=== PATIENT | female | born 1975 | race Caucasian/White ===

== ENCOUNTER 2018-04-11 10:44 | Emergency (ER) | payer OTHER ==
[~2018-04-11] VITALS: Ht 157.5 cm; Wt 103.0 kg
[2018-04-11] MEDS ORDERED: XANAFLEX (11:17)
[2018-04-11] MEDS ORDERED: METFORMIN HCL500 M1 PO (11:17)
[2018-04-11] MEDS ORDERED: TRAZODONE HCL50 MG PO (11:17)
[2018-04-11] MEDS ORDERED: FARXIGA (11:17)
[2018-04-11] MEDS ORDERED: WELLBUTRIN SR150 MG (11:17)
[2018-04-11] MEDS ORDERED: TRULICITY (11:17)
[2018-04-11] MEDS ORDERED: CELEXA10 MG (11:17)
[2018-04-11] MEDS ORDERED: ATENOLOL50 MG PO (11:17)
[2018-04-11] MEDS ORDERED: ATORVASTATIN CA10 MG PO (11:17)
[2018-04-11] MEDS ORDERED: GABAPENTIN300 MG PO (11:17)
[2018-04-11] MEDS ORDERED: ZANAFLEX4 M1 (11:23)
[2018-04-11] MEDS ORDERED: KETOROLAC TROMETHAMINE 60 MG/2 ML VIAL IM ONE (11:30)
== END 2018-04-11 11:48 | disposition home or self-care (01) ==
LOC: FSED 10:44
DX: S30.0XXA Contusion of lower back and pelvis, initial encounter (principal); W01.0XXA Fall on same level from slipping, tripping and stumbling without subsequent striking against object, initial encounter; Y92.002 Bathroom of unspecified non-institutional (private) residence as the place of occurrence of the external cause; F32.9 Major depressive disorder, single episode, unspecified; F41.9 Anxiety disorder, unspecified
CPT/HCPCS: 72220; 99283; J1885

== ENCOUNTER 2018-07-30 19:53 | Emergency (ER) | payer OTHER ==
[~2018-07-30] VITALS: Ht 157.5 cm; Wt 103.0 kg
[~2018-07-30 19:53] MED LIST: ATENOLOL50 MG PO; ATORVASTATIN CA10 MG PO; CELEXA10 MG; FARXIGA; GABAPENTIN300 MG PO; METFORMIN HCL500 M1 PO; TRAZODONE HCL50 MG PO; TRULICITY; WELLBUTRIN SR150 MG; XANAFLEX; ZANAFLEX4 M1
--- OUTSIDE RECORDS SUMMARY | 2018-07-30 19:56 | XMS REPORT ---
Author Author [facility] Address Unknown Phone Unavailable Care Team Providers Care Direct Mail Coordinator Name Role Phone GABRIELA BURNETT Unavailable Unavailable Problems This patient has no known problems. Allergies, Adverse Reactions, Alerts This patient has no known allergies or adverse reactions. Medications This patient has no known medications. Results Test Description Test Time Test Comments Text Results Atomic Results Result Comments RAD, HAND, 3 VIEWS, LEFT 2018-06-26 20:02:00 Reason for exam:->ANIMAL BITEPATIENT REPORTED DOG BITE TO LEFT HAND TUESDAY-Is the patient ?->NoShould this be performed at the bedside?->No FINAL REPORT CLINICAL HISTORY: ANIMAL BITE TECHNIQUE: 3 views of the left hand COMPARISON: None IMPRESSION: Diffuse soft tissue over the hand particularly the dorsal aspect of the metacarpals. No radiopaque foreign body. The bones of the hand are intact without evidence of fracture or dislocation. Signed: Wanda Godoy Verified Date/Time: 06/26/2018 20:02:32 Reading Location: [address] Reading Room , CHEST, 1 VIEW, NON DEPT 2018-06-14 19:00:00 Reason for exam:->PALPITATIONSReason for exam:->SHORTNESS OF BREATHIs the patient ?->Unknown FINAL REPORT Chest, 1 view Clinical history: PALPITATIONSSHORTNESS OF BREATH Comparison: 06/09/2015 Discussion: There is no pneumothorax, pulmonary edema or pleural effusion. There is no focal consolidation. There is mild bibasilar atelectasis. There is asymmetric elevation of the right hemidiaphragm as before. The cardiac silhouette appears within normal limits. No acute osseous abnormality. IMPRESSION: No acute cardiopulmonary abnormality Signed: Kelsy, Luke MDReport Verified Date/Time: 06/14/2018 19:00:38 Reading Location: [facility] B1 C013X Ortho Consult Reading Room /FREE T4 IF INDICATED 2018-06-14 18:55:00 THYROID STIMULATING HORMONE (BEAKER) (test gvov=244) 1.42 uIU/mL 0.35-4.94 TROPONIN [id number] 18:41:00* Test Item Value Reference Range Comments TROPONIN I (BEAKER) (test sujj=998) < ng/mL 0.00-0.03 Troponin I (TnI) levels must be interpreted in the context of the presenting sym ptoms and the clinical findings. Elevated TnI levels indicate myocardial damage, but are not specific for ischemic heart disease. Elevated TnI levels are seen in patients with other cardiac conditions (including myocarditis and congestive h eart failure), and slight TnI elevations occur in patients with other conditions , including sepsis, renal failure, acidosis, acute neurological disease, and per sistent tachyarrhythmia.[id number] 18:32:00* Test Item Value Reference Range Comments MAGNESIUM (BEAKER) (test mkak=199) 1.7 mg/dL 1.6-2.6 BASIC METABOLIC [id number] 18:32:00* Test Item Value Reference Range Comments SODIUM (BEAKER) (test adfj=820) 136 meq/L 136-145 POTASSIUM (BEAKER) (test rigc=742) 3.9 meq/L 3.5-5.1 CHLORIDE (BEAKER) (test ceny=251) 102 meq/L 98-107 CO2 (BEAKER) (test tbey=029) 24 meq/L 22-29 BLOOD UREA NITROGEN (BEAKER) (test jplz=037) 15 mg/dL 7-21 CREATININE (BEAKER) (test xhlb=678) 0.75 mg/dL 0.57-1.25 GLUCOSE RANDOM (BEAKER) (test fnjp=893) 393 mg/dL 70-105 CALCIUM (BEAKER) (test bmen=240) 9.0 mg/dL 8.4-10.2 EGFR (BEAKER) (test foty=2643) 84 mL/min/1.73 sq m ESTIMATED GFR IS NOT ACCURATE CREATININE CLEARANCE IN PREDICTING GLOMERULAR FILTRATION RATE. ESTIMATED GFR IS NOT APPLICABLE FOR DIALYSIS PATIENTS. CBC W/PLT COUNT & AUTO [id number] 18:18:00* Test Item Value Reference Range Comments WHITE BLOOD CELL COUNT (BEAKER) (test ujgb=042) 11.0 K/ L 3.5-10.5 RED BLOOD CELL COUNT (BEAKER) (test whvh=027) 4.88 M/ L 3.93-5.22 HEMOGLOBIN (BEAKER) (test mzzv=775) 12.0 GM/DL 11.2-15.7 HEMATOCRIT (BEAKER) (test alpc=436) 38.7 % 34.1-44.9 MEAN CORPUSCULAR VOLUME (BEAKER) (test dknt=548) 79.3 fL 79.4-94.8 MEAN CORPUSCULAR HEMOGLOBIN (BEAKER) (test hzny=260) 24.6 pg 25.6-32.2 MEAN CORPUSCULAR HEMOGLOBIN CONC (BEAKER) (test ajai=304) 31.0 GM/DL 32.2-35.5 RED CELL DISTRIBUTION WIDTH (BEAKER) (test okmd=378) 17.2 % 11.7-14.4 PLATELET COUNT (BEAKER) (test uswt=817) 282 K/CU MM 150-450 MEAN PLATELET VOLUME (BEAKER) (test ugro=081) 11.4 fL 9.4-12.3 NUCLEATED RED BLOOD CELLS (BEAKER) (test rrxe=894) 0 /100 WBC 0-0 NEUTROPHILS RELATIVE PERCENT (BEAKER) (test zpax=958) 66 % LYMPHOCYTES RELATIVE PERCENT (BEAKER) (test jzzu=340) 25 % MONOCYTES RELATIVE PERCENT (BEAKER) (test eume=571) 7 % EOSINOPHILS RELATIVE PERCENT (BEAKER) (test ctts=561) 1 % BASOPHILS RELATIVE PERCENT (BEAKER) (test fpwl=287) 0 % NEUTROPHILS ABSOLUTE COUNT (BEAKER) (test ptzr=927) 7.21 K/ L 1.56-6.13 LYMPHOCYTES ABSOLUTE COUNT (BEAKER) (test bxey=708) 2.74 K/ L 1.18-3.74 MONOCYTES ABSOLUTE COUNT (BEAKER) (test wqzh=876) 0.74 K/ L 0.24-0.36 EOSINOPHILS ABSOLUTE COUNT (BEAKER) (test ssen=092) 0.15 K/ L 0.04-0.36 BASOPHILS ABSOLUTE COUNT (BEAKER) (test bpku=205) 0.04 K/ L 0.01-0.08 IMMATURE GRANULOCYTES-RELATIVE PERCENT (BEAKER) (test ugqk=9650) 1 % 0-1
--- OUTSIDE RECORDS SUMMARY | 2018-07-30 19:56 | XMS REPORT | Clinical Summary ---
Author Author [employer] [facility]The [facility] Organization [facility] Address Unknown Phone Unavailable Care Team Providers Care Securities Attorney Name Role Phone Rusty Paula PCP Unavailable Allergies Comments Active Allergy Reactions Severity Noted Date Penicillins Anaphylaxis, High 06/09/2015 Hives Medications End Date Status Medication Sig Dispensed Refills Start Date Active LISINOPRIL ORAL Take by 0 mouth. Active ATENOLOL ORAL Take 50 mg by 0 mouth . Active SITAGLIPTIN Take by 0 PHOS/METFORMIN HCL mouth. (JANUMET ORAL) Active PRAVASTATIN SODIUM Take by 0 (PRAVASTATIN ORAL) mouth. Active insulin glargine (LANTUS) Inject 0 100 unit/mL injection subcutaneousl y nightly Use as directed . Active CITALOPRAM HYDROBROMIDE Take 40 mg by 0 (CELEXA ORAL) mouth . Active INSULIN LISPRO (HUMALOG Inject 0 SUBQ) subcutaneousl y. Active atorvastatin (LIPITOR) 20 Take 20 mg by 0 MG tablet mouth daily. Active metFORMIN (GLUCOPHAGE) Take 1,000 mg 0 1000 MG tablet by mouth 2 (two) times daily with breakfast and dinner. Active dulaglutide (TRULICITY Inject 0 SUBQ) subcutaneousl y once a week. Active sulfamethoxazole-trimetho Take 1 tablet 10 tablet 0 prim (BACTRIM DS) 800-160 (160 mg of 8 mg per tablet trimethoprim total) by mouth 2 (two) times daily. 07/01/2018 clindamycin (CLEOCIN) 300 Take 1 20 capsule 0 MG capsule capsule (300 8 mg total) by mouth 4 (four) times daily for 5 days. 07/01/2018 traMADol (ULTRAM) 50 mg Take 1 tablet 12 tablet 0 tablet (50 mg total) 8 by mouth every 8 (eight) hours as needed for Pain for up to 5 days. Max Daily Amount: 150 mg Active Problems Not on file Encounters Care Team Description Date Type Specialty Lasha Craven MD Dog bite of hand, left, initial encounter (Primary Dx); Cellulitis of left hand 06/26/2018 Emergency Emergency Medicine Kassie Silveira MD Palpitations (Primary Dx); Chest pain, unspecified type; PVC (premature ventricular contraction); Hyperglycemia; Obesity without serious comorbidity, unspecified classification, unspecified obesity type 06/14/2018 Emergency Emergency Medicine 06/14/2018 Orders Only General Internal Medicine after 07/29/2017 Immunizations Name Dates Previously Given Next Due Tdap 02/29/2016 Social History Date Tobacco Use Types Packs/Day Years Used Never Smoker Smokeless Tobacco: Never Used Alcohol Use Drinks/Week oz/Week Comments Yes social Sex Assigned at Date Recorded Not on file Industry Job Start Date Occupation Not on file Not on file Not on file Travel End Travel History Travel Start No recent travel history available. Last Filed Vital Signs Time Taken Vital Sign Reading 06/26/2018 6:21 PM CDT Blood Pressure 144/90 06/26/2018 6:21 PM CDT Pulse 62 06/26/2018 6:21 PM CDT Temperature 36.6 C (97.8 F) 06/26/2018 6:21 PM CDT Respiratory Rate 20 06/26/2018 6:21 PM CDT Oxygen Saturation 99% - Inhaled Oxygen - Concentration 06/26/2018 6:21 PM CDT Weight 103 kg (227 lb) 06/26/2018 6:21 PM CDT Height 157.5 cm (5' 2") 06/26/2018 6:21 PM CDT Body Mass Index 41.52 Plan of Treatment Not on file Procedures Comments Procedure Name Priority Date/Time Associated Diagnosis XR HAND LEFT 3 VIEW STAT 06/26/2018 6:48 PM CDT ED ECG INTERPRETATION Routine 06/14/2018 9:14 PM CDT XR CHEST 1 VIEW STAT 06/14/2018 PORTABLE/BEDSIDE 6:15 PM CDT CBC W/PLT COUNT & AUTO STAT 06/14/2018 DIFFERENTIAL 5:58 PM CDT TSH/FREE T4 IF INDICATED STAT 06/14/2018 5:58 PM CDT CBC W/PLT COUNT & AUTO STAT 06/14/2018 DIFFERENTIAL 5:58 PM CDT TROPONIN I STAT 06/14/2018 5:58 PM CDT MAGNESIUM STAT 06/14/2018 5:58 PM CDT BASIC METABOLIC PANEL (7) STAT 06/14/2018 5:58 PM CDT ECG 12-LEAD Routine 06/14/2018 5:25 PM CDT Procedure Note - Interface, External Ris In - 06/14/2018 6:14 PM CDT Ventricula r Rate 77 BPM Atrial Rate 77 BPM P-R Interval 152 ms QRS Duration 74 ms Q-T Interval 368 ms QTC Calculatio n(Bazett) 416 ms P [place] 29 degrees R [place] -20 degrees T [place] 11 degrees Sinus rhythm with occasional Premature ventricula r complexes Cannot rule out Anterior infarct , age undetermin ed Abnormal ECG When compared with ECG of 14-MAY-201 5 04:16, Premature ventricula r complexes are now Present ECG 12-LEAD STAT 06/14/2018 5:25 PM CDT after 07/29/2017 Results * XR hand 3 views left (06/26/2018 6:48 PM CDT) Narrative Performed At FINAL REPORT RIS CLINICAL HISTORY: ANIMAL BITE TECHNIQUE: 3 views of the left hand COMPARISON: None IMPRESSION: Diffuse soft tissue over the hand particularly the dorsal aspect of the metacarpals. No radiopaque foreign body. The bones of the hand are intact without evidence of fracture or dislocation. Signed: Wanda Godoy MD Report Verified Date/Time:06/26/2018 20:02:32 Reading Location: [address] Reading Room Procedure Note Interface, External Ris In - 06/26/2018 8:04 PM CDT FINAL REPORT CLINICAL HISTORY: ANIMAL BITE TECHNIQUE: 3 views of the left hand COMPARISON: None IMPRESSION: Diffuse soft tissue over the hand particularly the dorsal aspect of the metacarpals. No radiopaque foreign body. The bones of the hand are intact without evidence of fracture or dislocation. Signed: Wanda Godoy MD Report Verified Date/Time: 06/26/2018 20:02:32 Reading Location: [address] Reading Room Performing Organization Address City/State/Zipcode Phone Number [facility] * ED ECG Interpretation (06/14/2018 9:14 PM CDT) Narrative Performed At Kassie Silveira MD 06/14/20189:14 PM ECG/EKG Interpretation Date/Time: 06/14/2018 5:25 PM Performed by: KASSIE SILVEIRA Authorized by: KASSIE SILVEIRA The ECG was interpreted by ED physician. This ECG was not compared with previous ECG(s).The ECG is interpreted as sinus rhythm. Ectopy noted: PVCs. Rate is normal rate. Heart rate is 77 BPM. Conduction: conduction normal. ST segments normal. T waves normal. Clinical Impression: abnormal ECGECG reviewed and does not meet STEMI criteria. Patient tolerance: Patient tolerated the procedure well with no immediate complications * XR chest 1 view portable / bedside (06/14/2018 6:15 PM CDT) Narrative Performed At FINAL REPORT [facility] Chest, 1 view Clinical history: PALPITATIONS SHORTNESS OF BREATH Comparison: 06/09/2015 Discussion: There is no pneumothorax, pulmonary edema or pleural effusion. There is no focal consolidation. There is mild bibasilar atelectasis. There is asymmetric elevation of the right hemidiaphragm as before. The cardiac silhouette appears within normal limits. No acute osseous abnormality. IMPRESSION: No acute cardiopulmonary abnormality Signed: Alesia Mackey MD Report Verified Date/Time:06/14/2018 19:00:38 Reading Location: [facility] B1 C013X Ortho Consult Reading Room Procedure Note Interface, External Ris In - 06/14/2018 7:02 PM CDT FINAL REPORT Chest, 1 view Clinical history: PALPITATIONS SHORTNESS OF BREATH Comparison: 06/09/2015 Discussion: There is no pneumothorax, pulmonary edema or pleural effusion. There is no focal consolidation. There is mild bibasilar atelectasis. There is asymmetric elevation of the right hemidiaphragm as before. The cardiac silhouette appears within normal limits. No acute osseous abnormality. IMPRESSION: No acute cardiopulmonary abnormality Signed: Alesia Mackey MD Report Verified Date/Time: 06/14/2018 19:00:38 Reading Location: [facility] C013X Ortho Consult Reading Room Performing Organization Address City/State/Zipcode Phone Number [facility] * TSH/Free T4 If Indicated (06/14/2018 5:58 PM CDT) TSH 1.42 0.35 - 4.94 uIU/mL [facility] Specimen Blood - Arm, Left Performing Organization Address City/[facility]/[place] [address] [facility] * CBC with platelet count + automated diff (06/14/2018 5:58 PM CDT) WBC 11.0 (H) 3.5 - 10.5 K/L [facility] RBC 4.88 3.93 - 5.22 M/L [facility] Hemoglobin 12.0 11.2 - 15.7 GM/DL [facility] Hematocrit 38.7 34.1 - 44.9 % [facility] MCV 79.3 (L) 79.4 - 94.8 fL [facility] MCH 24.6 (L) 25.6 - 32.2 pg [facility] MCHC 31.0 (L) 32.2 - 35.5 GM/DL [facility] RDW 17.2 (H) 11.7 - 14.4 % [facility] Platelets 282 150 - 450 K/CU MM [facility] MPV 11.4 9.4 - 12.3 fL [facility] nRBC 0 0 - 0 /100 WBC [facility] % Neutros 66 % [facility] % Lymphs 25 % [facility] % Monos 7 % [facility] % Eos 1 % [facility] % Baso 0 % [facility] # Neutros 7.21 (H) 1.56 - 6.13 K/L [facility] # Lymphs 2.74 1.18 - 3.74 K/L [facility] # Monos 0.74 (H) 0.24 - 0.36 K/L [facility] # Eos 0.15 0.04 - 0.36 K/L [facility] # Baso 0.04 0.01 - 0.08 K/L [facility] Immature 1 0 - 1 % [facility] Granulocytes-Relative [facility] Specimen Blood - Arm, Left Performing Organization Address City/State/Zipcode Phone Number [facility] [address] [place] [address] MED[facility]ENTER * Troponin I (06/14/2018 5:58 PM CDT) Troponin I <0.01 0.00 - 0.03 ng/mL [facility] Specimen Blood - Arm, Left Narrative Performed At Troponin I (TnI) levels must be interpreted in the context of the presenting [facility] symptoms and the clinical findings. Elevated TnI levels indicate myocardial [facility] damage, but are not specific for ischemic heart disease. Elevated TnI levels are seen in patients with other cardiac conditions (including myocarditis and congestive heart failure), and slight TnI elevations occur in patients with other conditions, including sepsis, renal failure, acidosis, acute neurological disease, and persistent tachyarrhythmia. Performing Organization Address City/[facility] Phone Number [facility] [address] [place] [address] [facility] * Magnesium (06/14/2018 5:58 PM CDT) Magnesium 1.7 1.6 - 2.6 mg/dL [facility] Specimen Blood - Arm, Left Performing Organization Address [facility] Phone Number [facility] [address] [place] [address] [facility] * Basic Metabolic Panel (06/14/2018 5:58 PM CDT) Sodium 136 136 - 145 meq/L [facility] Potassium 3.9 3.5 - 5.1 meq/L [facility] Chloride 102 98 - 107 meq/L [facility] CO2 24 22 - 29 meq/L [facility] BUN 15 7 - 21 mg/dL [facility] Creatinine 0.75 0.57 - 1.25 mg/dL [facility] Glucose 393 (H) 70 - 105 mg/dL [facility] Calcium 9.0 8.4 - 10.2 mg/dL [facility] EGFR 84Comment: ESTIMATED GFR IS mL/min/1.[address] [facility] NOT ACCURATE CREATININE [facility] CLEARANCE IN PREDICTING GLOMERULAR FILTRATION RATE. ESTIMATED GFR IS NOT APPLICABLE FOR DIALYSIS PATIENTS. Specimen Blood - Arm, Left Performing Organization Address [facility] Phone Number [facility] [address] [place] [address] [facility] * ECG 12 lead (06/14/2018 5:25 PM CDT) Narrative Performed At Ventricular Rate 77 BPM [facility] Atrial Rate 77 BPM P-R Interval 152 ms QRS Duration 74 ms Q-T Interval 368 ms QTC Calculation(Bazett) 416 ms P [place] 29 degrees R [place] -20 degrees T [place] 11 degrees Sinus rhythm with occasional Premature ventricular complexes Low voltage complexes in the precordial leads noted. Abnormal ECG When compared with ECG of 09-JUN-2015 04:16, Premature ventricular complexes are now Present Confirmed by Emi GODINEZ BASANT ([id number]) on 06/15/2018 5:48:22 AM Procedure Note Interface, External Ris In - 06/15/2018 5:48 AM CDT Ventricular Rate 77 BPM Atrial Rate 77 BPM P-R Interval 152 ms QRS Duration 74 ms Q-T Interval 368 ms QTC Calculation(Bazett) 416 ms P [place] 29 degrees R [place] -20 degrees T [place] 11 degrees Sinus rhythm with occasional Premature ventricular complexes Low voltage complexes in the precordial leads noted. Abnormal ECG When compared with ECG of 09-JUN-2015 04:16, Premature ventricular complexes are now Present Confirmed by Emi GODINEZ, DAV ([id number]) on 06/15/2018 5:48:22 AM Performing Organization Address City/State/Zipcode Phone Number [facility] after 07/29/2017 Insurance Payer Benefit Subscriber ID Type Phone Address Plan / Group [employer] - [employer] C[employer] [facility] xxxxxxxxxxx HMO/POS NETWORK
--- NOTE | 2018-07-30 20:42 | Diagnostic Imaging Report ---
Exam: 3 views of the right hand Indication: Dog bite, index finger and all over Comparison: None Findings: No fractures, lytic or blastic lesions. No radiopaque foreign bodies. Impression: No fracture or radiopaque foreign body. Signed by: Dr. Rolanda Duarte M.D. on 07/30/2018 8:39 PM
== END 2018-07-30 20:52 | disposition home or self-care (01) ==
LOC: FSED 19:53
DX: S61.230A Puncture wound without foreign body of right index finger without damage to nail, initial encounter (principal); S61.232A Puncture wound without foreign body of right middle finger without damage to nail, initial encounter; W54.0XXA Bitten by dog, initial encounter; Y92.008 Other place in unspecified non-institutional (private) residence as the place of occurrence of the external cause
CPT/HCPCS: 99283

== ENCOUNTER 2019-08-20 10:56 | Emergency (ER) | payer OTHER | END 2019-08-20 11:33 | disposition short-term general hospital (02) | LOC: FSED 10:56 | DX: R05 Cough (principal) ==

== ENCOUNTER 2020-03-12 01:10 | Emergency (ER) | payer OTHER ==
[~2020-03-12] VITALS: Ht 157.5 cm; Wt 112.0 kg
[2020-03-12] MEDS ORDERED: SODIUM CHLORIDE 0.9% 1000ML 1,000 ML IV STA (01:43)
[2020-03-12] MEDS ORDERED: INSULIN REGULAR, HUMAN 100 UNIT/1 ML 3ML VIAL SQ ONE (01:45)
[2020-03-12] MEDS ORDERED: INSULIN REGULAR, HUMAN 100 UNIT/1 ML 3ML VIAL IV STA (01:51)
[2020-03-12] MEDS ORDERED: INSULIN REGULAR, HUMAN 100 UNIT/1 ML 3ML VIAL ONE (01:58)
[2020-03-12] MEDS ORDERED: SODIUM CHLORIDE 0.9% 1000ML 1,000 ML ONE (01:58)
--- NOTE | 2020-03-12 02:08 | Emergency Department Note ---
History of Present Illnes History of Present Illness Chief Complaint: perez/bodyaches History of Present Illness This is a 44 year old female. was doing well prior to this. then bod yaches/perez/fatigue. pt came in contact with a pt who has covid Historian: Patient Arrival Mode: Car History limited by: condition of the patient (normal) Onset (how long ago): day(s) (3) Location: perez/whole body Quality: sharp Radiation: Reports non-radiation Severity: moderate Onset quality: gradual Duration (how long): day(s) (3) Timing of current episode: constant Progression: worsening Chronicity: new Context: Denies recent illness, Denies recent surgery, Denies recent immobilization, Denies recent travel, Denies trauma/injury, Denies new medications, Denies hx of DVT/PE Relieving factors: none Exacerbating factors: movement Associated symptoms: Reports headaches, Reports malaise; Denies confusion, Denies chest pain, Denies cough, Denies diaphoresis, Denies fever/chills, Denies loss of appetite, Denies nausea/vomiting, Denies rash, Denies seizure, Denies shortness of breath, Denies syncope, Denies weakness Treatments prior to arrival: none Past Medical/Family History Physician Review I have reviewed the patient's past medical and family history. Any updates have been documented here. Past Medical History Recent Fever: No Clinical Suspicion of Infectio: No New/Unexplained Change in Ment: No Past Medical History: Diabetes, Anxiety, Depression, Other Mental Illness, Hyperlipedemia, Chronic Back Pain Other Medical History: SLEEP APNEA NEUROPATHY IRREGULAR HEART BEAT Past Surgical History: T&A Other Surgery: UPP (UVULA PALATE PLASTY) REMOVED FOR SLEEP APNEA DEVIATED SEPTUM Social History Smoking Cessation: Never Smoker Counseling Performed: No Alcohol Use: None Any Illegal Drug Use: No TB Exposure/Symptoms: No Physically hurt or threatened: No Family History Family history of heart diseas: No Other Last Tetanus: 2014 Any Pre-Existing Lines (PICC,: No Is patient up to date on immun: No Last Flu: YES Last Pneumovax: NO Review of Systems Review of Systems Constitutional: Reports malaise, Reports other (bodyaches) EENTM: Reports no symptoms Cardiovascular: Reports no symptoms Respiratory: Reports no symptoms Gastrointestinal: Reports no symptoms Genitourinary: Reports no symptoms Musculoskeletal: Reports no symptoms Integumentary: Reports no symptoms Neurological: Reports as per HPI, Reports headache Psychological: Reports no symptoms Endocrine: Reports no symptoms Hematological/Lymphatic: Reports no symptoms Review of other systems: All other systems negative Physical Exam Related Data Allergies: Coded Allergies: Penicillins (Verified Allergy, Unknown, 04/11/18) Triage Vital Signs Vital Signs Date Time Temp Pulse Resp B/P (MAP) Pulse Ox O2 Delivery O2 Flow Rate FiO2 03/12/20 01:15 98.1 82 17 142/76 99 Vital signs reviewed: Yes Physical Exam CONSTITUTIONAL Constitutional: Present well-developed, Present well-nourished HENT HENT: Present normocephalic, Present atraumatic, Present oropharynx clear/moist, Present nose normal HENT L/R: Present left ext ear normal, Present right ext ear normal EYES Eyes: Reports PERRL, Reports conjunctivae normal NECK Neck: Present ROM normal PULMONARY Pulmonary: Present effort normal, Present breath sounds normal CARDIOVASCULAR Cardiovascular: Present regular rhythm, Present heart sounds normal, Present capillary refill normal, Present normal rate GASTROINTESTINAL Abdominal: Present soft, Present nontender, Present bowel sounds normal GENITOURINARY Genitourinary: Present exam deferred SKIN Skin: Present warm, Present dry MUSCULOSKELETAL Musculoskeletal: Present ROM normal NEUROLOGICAL Neurological: Present alert, Present oriented x 3, Present no gross motor or sensory deficits PSYCHOLOGICAL Psychological: Present mood/affect normal, Present judgement normal Results Laboratory Lab results reviewed: Yes (cbc nl, cmp normal except glucose 315, ua=ketones, cardiac enzymes neg) Laboratory comments covid pending Imaging Imaging results reviewed: Yes Impressions [place] [address] Patient Name: SATINDER HOOK MR #: [id number] : 1975 Age/Sex: 44/F Req #: [id number] Adm Physician: Ordered by: BISI AZAR Report #: [id number] Location: [facility] Room/Bed: Procedure: [id number] HOPD/CT BRAIN WO-HOPD Exam Date: 03/12/20 Exam Time: 211 REPORT STATUS: Signed History: Headaches Comparison studies: None Technique: Axial images were obtained from the skull base to the vertex. Coronal and sagittal reconstructions obtained from the axial data. Dose modulation, iterative reconstruction, and/or weight based adjustment of the mA/kV was utilized to reduce the radiation dose to as low as reasonably achievable. Findings: Scalp/skull: No abnormalities. No fractures, blastic or lytic lesions. Extra-axial spaces: No masses. No fluid collections. Brain sulci: Appropriate for age. Ventricles: Normal in size and configuration. No hydrocephalus. Parenchyma: No abnormal densities. No masses, hemorrhage, acute or chronic cortical vascular insults. Sellar/suprasellar region: No abnormalities Craniocervical junction: Patent foramen magnum. No Chiari one malformation. IMPRESSION: No abnormalities . Signed by: DR Maximo Fierro M.D. on 03/12/2020 2:26 AM Dictated By: MAXIMO ORTIZ MD 5 Transcribed By: FABRICIO on 03/12/20225 COPY TO: BISI AZAR~ [place] [address] Patient Name: SATINDER HOOK MR #: [id number] : 1975 Age/Sex: 44/F Req #: [id number] Adm Physician: Ordered by: BISI AZAR Report #: [id number] Location: [facility] Room/Bed: Procedure: [id number] HOPD/CXR 1 [facility] Exam Date: 03/12/20 Exam Time: 0205 REPORT STATUS: Signed EXAMINATION: CXR 1 [facility] INDICATION: Body ache, fatigue, headache, chills COMPARISON: None FINDINGS: TUBES and LINES: None. LUNGS: Low lung volumes. Lungs are clear. No consolidations. PLEURA: No pleural effusion or pneumothorax. HEART AND MEDIASTINUM: The cardiomediastinal silhouette is unremarkable. BONES AND SOFT TISSUES: No acute osseous lesion. Soft tissues are unremarkable. UPPER ABDOMEN: No free air under the diaphragm. IMPRESSION: Low lung volumes. Otherwise no acute thoracic radiographic abnormality. Signed by: Erick Hernández DO on 03/12/2020 3:22 AM Dictated By: ERICK HERNÁNDEZ DO 1 Transcribed By: FABRICIO on 03/12/20321 COPY TO: BISI AZAR~ Assessment & Plan Medical Decision Making MDM see rx meds. drank plenty of water Reassessment Reassessment got better s/p meds Assessment & Plan Final Impression: (1) Headache (2) Myalgia (3) Nausea Depart Disposition: HOME, SELF-CARE Last Vital Signs Date Time Temp Pulse Resp B/P (MAP) Pulse Ox O2 Delivery O2 Flow Rate FiO2 03/12/20 01:15 98.1 82 17 142/76 99 Home Meds Active Scripts Tramadol Hcl (ULTRAM) 50 Mg Tablet, 50 MG PO Q4HR PRN for MODERATE PAIN (4-6), #20 TAB take after naprosyn to control pain if need be Prov:BISI AZAR 03/12/20 Naproxen (NAPROSYN) 500 Mg Tablet, 500 MG PO Q12H PRN for MODERATE PAIN (4-6), #30 TAB Prov:BISI AZAR 03/12/20 Ondansetron (ONDANSETRON ODT) 8 Mg Tab.rapdis, 4 MG PO Q4HR PRN for NAUSEA AND VOMITING, #30 TAB Prov:BISI AZAR 03/12/20 Reported Medications Tizanidine Hcl (ZANAFLEX) 4 Mg Capsule 04/11/18 Gabapentin (GABAPENTIN) 300 Mg Capsule, 300 MG PO TID, #60 CAP 04/11/18 Trazodone Hcl (TRAZODONE HCL) 50 Mg Tablet, 50 MG PO DAILY, #30 TAB 04/11/18 [Trulicity] No Conflict Check 04/11/18 Metformin Hcl (METFORMIN HCL ER) 500 Mg Tab.er.24h, 1000 MG PO BID 04/11/18 [Farxiga] No Conflict Check 04/11/18 Bupropion Hcl (WELLBUTRIN SR) 150 Mg Tablet.er 04/11/18 Citalopram Hydrobromide (CELEXA) 10 Mg Tablet 04/11/18 Atorvastatin Calcium (ATORVASTATIN CALCIUM) 10 Mg Tablet, 10 MG PO 2100, #30 TAB 04/11/18 Atenolol (ATENOLOL) 50 Mg Tablet, 25 MG PO DAILY 04/11/18 Medications in the ED Sodium Chloride 1,000 ml @ 1,000 mls/hr Q1H STAT IV Last administered on 03/12/20at 01:55; Admin Dose 1,000 MLS/HR; Start 03/12/20 at 01:43; Stop 03/12/20 at 02:42 Insulin Human Regular 6 unit ONCE ONCE SQ Last administered on 03/12/20at 01:55; Admin Dose 6 UNIT; Start 03/12/20 at 01:45; Stop 03/12/20 at 01:52; Status DC Insulin Human Regular 6 unit ONCE STAT IV ; Start 03/12/20 at 01:51; Stop 03/12/20 at 01:52; Status UNV Sodium Chloride 1,000 ml @ STK-MED ONCE .ROUTE ; Start 03/12/20 at 01:58; Stop 03/12/20 at 01:52; Status DC BISI AZAR Mar 12, 2020 02:08
[2020-03-12] MEDS ORDERED: KETOROLAC TROMETHAMINE 30 MG/ML VIAL IV STA (02:11)
--- NOTE | 2020-03-12 02:29 | Diagnostic Imaging Report ---
History: Headaches Comparison studies: None Technique: Axial images were obtained from the skull base to the vertex. Coronal and sagittal reconstructions obtained from the axial data. Dose modulation, iterative reconstruction, and/or weight based adjustment of the mA/kV was utilized to reduce the radiation dose to as low as reasonably achievable. Findings: Scalp/skull: No abnormalities. No fractures, blastic or lytic lesions. Extra-axial spaces: No masses. No fluid collections. Brain sulci: Appropriate for age. Ventricles: Normal in size and configuration. No hydrocephalus. Parenchyma: No abnormal densities. No masses, hemorrhage, acute or chronic cortical vascular insults. Sellar/suprasellar region: No abnormalities Craniocervical junction: Patent foramen magnum. No Chiari one malformation. IMPRESSION: No abnormalities . Signed by: DR Maximo Fierro M.D. on 03/12/2020 2:26 AM
[2020-03-12] MEDS ORDERED: KETOROLAC TROMETHAMINE 30 MG/ML VIAL ONE (02:48)
--- NOTE | 2020-03-12 03:26 | Diagnostic Imaging Report ---
EXAMINATION: CXR 1 [facility] INDICATION: Body ache, fatigue, headache, chills COMPARISON: None FINDINGS: TUBES and LINES: None. LUNGS: Low lung volumes. Lungs are clear. No consolidations. PLEURA: No pleural effusion or pneumothorax. HEART AND MEDIASTINUM: The cardiomediastinal silhouette is unremarkable. BONES AND SOFT TISSUES: No acute osseous lesion. Soft tissues are unremarkable. UPPER ABDOMEN: No free air under the diaphragm. IMPRESSION: Low lung volumes. Otherwise no acute thoracic radiographic abnormality. Signed by: Erick Hernández DO on 03/12/2020 3:22 AM
[2020-03-12] MEDS ORDERED: ULTRAM50 MG PO (04:03)
[2020-03-12] MEDS ORDERED: ONDANSETRON ODT8 MG PO (04:03)
[2020-03-12] MEDS ORDERED: NAPROSYN500 MG PO (04:03)
[2020-03-12 04:14] VITALS: BP 137/72
--- NOTE | 2020-03-12 06:09 | NUR ---
PER DR AZAR CALLED PT TO INFORM OF POSITVE COVID RESULTS, INSTRUCTED PT ON MEDICATIONS, QUARANTINE, FOLLOW UP CARE AND TESTING, AND RETURNING IF SYMPTOMS WORSEN, PT VERBALIZED UNDERSTANDING.
== END 2020-03-12 04:15 | disposition home or self-care (01) ==
LOC: FSED 01:10
DX: R51 Headache (principal); U07.1 COVID-19; M79.10 Myalgia, unspecified site; R11.0 Nausea
CPT/HCPCS: 36415; 70450; 71045; 80053; 81003; 81025; 82553; 82948; 84484; 85025; 87635; 99284; J1817; J1885; J7030

== ENCOUNTER 2020-12-18 20:57 | Emergency (ER) | payer SELFPAY ==
[~2020-12-18] VITALS: Ht 160 cm; Wt 120.7 kg
[~2020-12-18 20:57] MED LIST changes: +NAPROSYN500 MG PO; +ONDANSETRON ODT8 MG PO; +ULTRAM50 MG PO
[2020-12-18] MEDS ORDERED: IBUPROFEN 600 MG TAB PO STA (21:39)
[2020-12-18] MEDS ORDERED: IBUPROFEN 600 MG TAB ONE (22:11)
[2020-12-18] MEDS ORDERED: CYCLOBENZAPRINE5 MG PO (22:56)
[2020-12-18] MEDS ORDERED: NAPROSYN500 MG PO (22:56)
[2020-12-18 23:42] VITALS: BP 144/79
== END 2020-12-18 23:42 | disposition home or self-care (01) ==
LOC: FSED 21:35
DX: S70.01XA Contusion of right hip, initial encounter (principal); M25.551 Pain in right hip; V43.52XA Car driver injured in collision with other type car in traffic accident, initial encounter; Y92.488 Other paved roadways as the place of occurrence of the external cause; E11.40 Type 2 diabetes mellitus with diabetic neuropathy, unspecified; E78.5 Hyperlipidemia, unspecified; G47.30 Sleep apnea, unspecified; F41.9 Anxiety disorder, unspecified; M54.9 Dorsalgia, unspecified; G89.29 Other chronic pain
CPT/HCPCS: 71045; 81003; 81025; 99283

== ENCOUNTER 2021-02-06 08:23 | Emergency (ER) | payer OTHER ==
[~2021-02-06] VITALS: Ht 167.6 cm; Wt 121.1 kg
[~2021-02-06 08:23] MED LIST changes: +CYCLOBENZAPRINE5 MG PO
[2021-02-06] MEDS ORDERED: ACTOS15 MG PO (08:41)
[2021-02-06] MEDS ORDERED: LYRICA100 MG PO (08:41)
[2021-02-06] MEDS ORDERED: OMEPRAZOLE40 MG PO (08:41)
[2021-02-06] MEDS ORDERED: EFFEXOR XR150 MG PO (08:41)
[2021-02-06] MEDS ORDERED: BASAGLAR K100 UNIT/1 (08:41)
[2021-02-06] MEDS ORDERED: HYDROCODONE/APAP 5MG-325MG TAB PO ONE (08:45)
[2021-02-06] MEDS ORDERED: KETOROLAC TROMETHAMINE 60 MG/2 ML VIAL IM ONE (08:45)
[2021-02-06] MEDS ORDERED: ONDANSETRON HCL 4 MG ORAL DISINTEGRATING TAB PO ONE (08:45)
[2021-02-06] MEDS ORDERED: ONDANSETRON HCL 4 MG ORAL DISINTEGRATING TAB ONE (08:55)
[2021-02-06] MEDS ORDERED: KETOROLAC TROMETHAMINE 60 MG/2 ML VIAL ONE (08:55)
[2021-02-06] MEDS ORDERED: HYDROCODONE/APAP 5MG-325MG TAB ONE (08:55)
[2021-02-06] MEDS ORDERED: NAPROSYN500 MG PO (09:14)
[2021-02-06] MEDS ORDERED: ULTRAM50 MG PO (09:14)
[2021-02-06 09:56] VITALS: BP 135/80
== END 2021-02-06 10:41 | disposition home or self-care (01) ==
LOC: FSED 08:45
DX: M54.42 Lumbago with sciatica, left side (principal); G89.29 Other chronic pain; E11.9 Type 2 diabetes mellitus without complications; I10 Essential (primary) hypertension; E78.5 Hyperlipidemia, unspecified; F41.9 Anxiety disorder, unspecified
CPT/HCPCS: 72131; 72192; 96372; 99283; J1885; Q0162

== ENCOUNTER 2022-06-08 06:21 | Emergency (ER) | payer BC, OTHER ==
[~2022-06-08] VITALS: Ht 160 cm; Wt 88.9 kg
[~2022-06-08 06:21] MED LIST changes: +ACTOS15 MG PO; +BASAGLAR K100 UNIT/1; +EFFEXOR XR150 MG PO; +LYRICA100 MG PO; +OMEPRAZOLE40 MG PO
[2022-06-08] MEDS ORDERED: KETOROLAC TROMETHAMINE 30 MG/ML VIAL IM STA (06:59)
[2022-06-08] MEDS ORDERED: HYDROCODONE/APAP 5MG-325MG TAB PO ONE (07:00)
[2022-06-08] MEDS ORDERED: CYCLOBENZAPRINE HCL 10 MG TAB PO ONE (07:00)
[2022-06-08] MEDS ORDERED: CYCLOBENZAPRINE5 MG PO (07:17)
[2022-06-08] MEDS ORDERED: MELOXICAM7.5 MG PO (07:17)
== END 2022-06-08 07:53 | disposition home or self-care (01) ==
LOC: FSED 06:40
DX: M25.512 Pain in left shoulder (principal); Z88.0 Allergy status to penicillin; I10 Essential (primary) hypertension
CPT/HCPCS: 96372; 99282; J1885